=== PATIENT | female | born 1985 | race Hispanic/Latino ===

== ENCOUNTER 2017-03-31 20:48 | Emergency (ER) | payer SELFPAY | END 2017-03-31 21:34 | disposition home or self-care (01) | LOC: ERS 20:48 | DX: B34.9 Viral infection, unspecified (principal) | CPT/HCPCS: 99283 ==

== ENCOUNTER 2017-07-01 21:50 | Emergency (ER) | payer BC, SELFPAY ==
[2017-07-01] MEDS ORDERED: Ibuprofen 200 MG TAB ONE (22:56)
== END 2017-07-01 23:28 | disposition home or self-care (01) ==
LOC: ERS 21:50
DX: J11.1 Influenza due to unidentified influenza virus with other respiratory manifestations (principal); I35.0 Nonrheumatic aortic (valve) stenosis
CPT/HCPCS: 99283

== ENCOUNTER 2017-11-06 22:20 | Emergency (ER) | payer BC | END 2017-11-06 23:10 | disposition home or self-care (01) | LOC: ERS 22:20 | DX: L30.9 Dermatitis, unspecified (principal); I35.0 Nonrheumatic aortic (valve) stenosis; Z79.899 Other long term (current) drug therapy | CPT/HCPCS: 99282 ==

== ENCOUNTER 2017-11-27 15:35 | Emergency (ER) | payer OTHER, SELFPAY ==
--- NOTE | 2017-11-27 18:57 | CT ---
CERVICAL SPINE CT: 11/27/17 COMPARISON: None. HISTORY: Injury, trauma, pain. TECHNIQUE: Serial axial CT imaging at 2.5 mm intervals from skull base through lung apices without contrast. Cor onal and sagittal reformatted imaging obtained. FINDINGS: The craniocervical junction is intact. Atlantoaxial interspace, dens, occipital condyles, and C1-2 ar ticulation appear within normal limits. Imaged lung apices are unremarkable. There is straightening of the normal cervical lordosis with no a nterolisthesis or retrolisthesis seen. No prevertebral soft tissue swelling. No fracture or evidence of dislocation. IMPRESSION: No acute findings. POS: [facility]
== END 2017-11-27 18:49 | disposition home or self-care (01) ==
LOC: ERS 15:35
DX: S13.4XXA Sprain of ligaments of cervical spine, initial encounter (principal); V89.2XXA Person injured in unspecified motor-vehicle accident, traffic, initial encounter
CPT/HCPCS: 72125

== ENCOUNTER 2018-11-26 07:20 | Outpatient (CLI) | payer BC ==
--- NOTE | 2018-11-26 08:19 | ULT ---
HEPATIC ULTRASOUND WITH VASCULAR DUPLEX INCLUDING COLOR AND SPECTRAL DOPPLER IMAGING: HISTORY: Hepatitis C. FINDINGS: Liver echogenicity is within normal limits. Multiple cholelithiasis with at least 1 large gallstone and some associated shadowing. Common bile duct 0.5 cm. No splenomegaly. Vascular duplex with color and spectral Doppler imaging demonstrates antegrade hepatic venous and por galo venous and hepatic arterial flow. IMPRESSION: Multiple cholelithiasis. Antegrade hepatic venous and portal venous flow. POS: OFF
== END 2018-11-26 07:21 | disposition home or self-care (01) ==
LOC: BICULT 07:20
PROVIDERS: ATTEND Internal Medicine Gastroenterology
DX: B18.2 Chronic viral hepatitis C (principal); K80.20 Calculus of gallbladder without cholecystitis without obstruction
CPT/HCPCS: 76705

== ENCOUNTER 2020-10-17 15:54 | Outpatient (CLI) | payer BC | END 2020-10-17 15:55 | disposition home or self-care (01) | LOC: BICRAD 15:54 | PROVIDERS: ATTEND Obstetrics & Gynecology | DX: T83.32XA Displacement of intrauterine contraceptive device, initial encounter (principal) | CPT/HCPCS: 74018 ==

== ENCOUNTER 2021-06-29 17:26 | Emergency (ER) | payer BC | END 2021-06-29 17:53 | disposition home or self-care (01) | LOC: ERS 17:26 | DX: U07.1 COVID-19 (principal) | CPT/HCPCS: 99283 ==

== ENCOUNTER 2022-02-01 22:20 | Emergency (ER) | payer BC ==
[2022-02-01] MEDS ORDERED: Ondansetron PF 4 MG/2 ML Vial ONE (23:11)
[2022-02-01 23:30] LABS: #Eosinphils 0.1 thou/uL (0.0-0.7); #Lymphocytes 1.4 thou/uL (1.20-3.40); #Monocytes 0.9 thou/uL (0.11-0.59); #Neutrophils 6.2 thou/uL (1.40-6.50); %Basophils 0.4 % (0.0-1.0); %Eosinophils 1.7 % (0.0-10.0); %Lymphocytes 15.8 % (21.0-51.0); %Monocytes 10.6 % (0.0-10.0); %Neutrophils 71.5 % (42.0-75.0); Hemoglobin 11.8 g/dL (12.0-16.0); Mean Corpuscular HGB CONC 33.3 g/dL (32.0-36.0); Mean Corpuscular Hemoglobin 29.4 pg (27.0-31.0); Mean Corpuscular Volume 88.4 fL (78.0-98.0); Mean Platelet Volume 7.4 fL (7.4-10.4); Platelet Count 267 thou/uL (130-400); RBC Distribution Width 12.7 % (11.5-14.5); Red Blood Cell (RBC) Count 4.01 mill/uL (4.20-5.40); White Blood Cell (WBC) Count 8.6 thou/uL (4.8-10.8)
[2022-02-01 23:34] LABS: Pregs Control Background? CLEAR/WHITE (CLR/WHITE); Pregs Control Bar Appear? YES (CONTROL BAR)
[2022-02-01 23:39] LABS: BHCG - Serum Negative (NEGATIVE)
[2022-02-01 23:58] LABS: ALT (SGPT) 10 U/L (8-55); AST (SGOT) 12 U/L (5-34); Albumin 3.6 g/dL (3.5-5.0); Alkaline Phosphatase 41 U/L (40-110); Anion Gap 13 mmol/L (10-20); BUN (Urea Nitrogen) 10 mg/dL (7.0-18.7); Bilirubin, Total 0.2 mg/dL (0.2-1.2); CK (CPK) 51 U/L (29-168); Calc. Creatinine Clearance 0 mL/min (70-130); Carbon Dioxide 22 mmol/L (22-29); Chloride 106 mmol/L (98-107); Estimated GFR 110; Globulin 3.2 g/dL (2.4-3.5); Glucose 118 mg/dL (70-105); Lipase 14 U/L (8-78); Potassium 4.2 mmol/L (3.5-5.1); Protein, Total 6.8 g/dL (6.0-8.3); Sodium 137 mmol/L (136-145)
[2022-02-02] MEDS ORDERED: Iopamidol-370 76% 500 ML 1 ML ONE (08:54)
== END 2022-02-02 03:31 | disposition home or self-care (01) ==
LOC: ERS 22:20
DX: U07.1 COVID-19 (principal)
CPT/HCPCS: 36415; 71045; 71275; 80053; 82550; 83690; 84484; 84703; 85025; 85379; 93005; 96361; 96374; J2405; Q9967

== ENCOUNTER 2025-05-25 11:02 | Emergency (ER) | payer BC ==
[2025-05-25] MEDS ORDERED: diphenhydrAMINE 25 MG CAP ONE (12:49)
== END 2025-05-25 15:32 | disposition home or self-care (01) ==
LOC: ERS 11:02
DX: L02.411 Cutaneous abscess of right axilla (principal); T78.40XA Allergy, unspecified, initial encounter
CPT/HCPCS: 10060; Q0162